=== PATIENT | male | born 1950 | race Caucasian/White ===

== ENCOUNTER 2021-11-17 00:09 | Day surgery (SDC) | payer MEDICARE, SELFPAY ==
[2021-10-29 14:18] VITALS: BMI 35.8
--- NOTE | 2021-11-17 07:46 | WPDANESEPPF ---
Anes - Initial Pre Proc Eval Procedure: Operation Date: 11/17/21 09:45 Proposed Procedures p Screening Colonoscopy - Rizwan Barnard MD Date/Time: 11/17/21 07:46 Surgeon: Rizwan Barnard MD Pre Op Diagnosis: hx of colon polyps Patient Data Age: 71 Gender: M Height: 1.75 m Weight: 110 kg Allergies Allergy/AdvReac Type Severity Reaction Status Date / Time No Known Allergies Allergy Unknown NOT AN Uncoded 11/17/21 08:30 ALLERGY Home Medications Medication Instructions Recorded Confirmed Type aspirin 81 mg tablet,delayed 81 mg PO DAILY 08/09/19 10/29/21 History release (Adult Low Dose Aspirin) cholecalciferol (vitamin D3) 125 6,000 unit PO DAILY 08/09/19 10/29/21 History mcg (5,000 unit) tablet amlodipine 10 mg tablet 10 mg PO DAILY #90 tabs 05/07/21 10/29/21 Rx atorvastatin 40 mg tablet 40 mg PO DAILY #90 tabs 05/07/21 10/29/21 Rx fenofibrate 160 mg tablet 160 mg PO DAILY #90 tabs 05/07/21 10/29/21 Rx sodium sul 1.479 gram-potas ch See Rx Instructions PO PER PKG DIR 10/22/21 10/29/21 Rx 0.188 gram-magnes sul 0.225 gram #24 tabs tablet (Sutab) Patient hx anesthesia problems: none Family hx anesthesia problems: none Results Review: All pre-operative results and documents have been reviewed as part of the pre-operative evaluation. [facility] Past Medical History Medical History (Updated 02/18/21 @ 22:06 by Anahi Dooley MD) Essential (primary) hypertension H/O colon cancer, stage III Hyperlipidemia, unspecified Obesity (BMI 30-39.9) Vitamin D deficiency Social History Social History Smoking packs per day: 1 Smoking cigarettes per day: 20.0 Years smoked: 20 Smoking pack-years: 20.00 Smoking status: Former smoker Second hand tobacco smoke exposure: No Alcohol intake: current Alcohol use details: beer 2-3/night Substance use: never Substance use type: does not use Living arrangements: with family Gender identity (if verbalized by the patient): Male Spiritual care concerns: No Anes - Eval Final PreProcedure Day of Procedure 11/17/21 07:46 Patient weight: obese Heart: regular rate and rhythm Lungs: clear to auscultation Airway: Mallampati scale class II Neurological: alert and oriented Last oral intake: >/= 8 hours ASA classification: III Emergent: no Anesthetic plan: proceed Anesthesia type and monitoring: general GIVS and standard monitoring Results Review: All pre-operative results and documents have been reviewed as part of the pre-operative evaluation. Informed Consent: The patient's anesthetic plan and its attendant risks and benefits were discussed with the patient/family/POA. Questions were solicited and answers provided to the satisfaction of the patient/family/POA.
[2021-11-17 08:31] VITALS: BP 133/82; PULSE 73; RESP 18; TEMP 36.2; O2SAT 99
[2021-11-17] MEDS: LACTATED RINGERS 1,000 ML 150 ML IV CONT (08:45)
--- NOTE | 2021-11-17 08:57 | PM.IMHP ---
H&P: HPI History of Present Illness Date/Time: 11/17/21 08:57 Chief Complaint: Neoplasia screening. Narrative: This is a 71-year-old white male patient presents for screening colonoscopy. Patient has a history of colon cancer resected 1998. He has had colon polyps noted subsequently most recently 2018. Patient reports that his current weight appetite and bowel movements are normal. He denies abdominal pain. He has had no bleeding. Family history is noncontributory. Review of Systems Review of Systems: Review of systems noncontributory. [facility] Past Medical History Medical History (Updated 02/18/21 @ 22:06 by Anahi Dooley MD) Essential (primary) hypertension H/O colon cancer, stage III Hyperlipidemia, unspecified Obesity (BMI 30-39.9) Vitamin D deficiency Social History Social History Smoking packs per day: 1 Smoking cigarettes per day: 20.0 Years smoked: 20 Smoking pack-years: 20.00 Smoking status: Former smoker Second hand tobacco smoke exposure: No Alcohol intake: current Alcohol use details: beer 2-3/night Substance use: never Substance use type: does not use Living arrangements: with family Gender identity (if verbalized by the patient): Male Spiritual care concerns: No Meds Home Medications and Allergies Home Medications Medication Instructions Recorded Confirmed Type aspirin 81 mg tablet,delayed 81 mg PO DAILY 08/09/19 10/29/21 History release (Adult Low Dose Aspirin) cholecalciferol (vitamin D3) 125 6,000 unit PO DAILY 08/09/19 10/29/21 History mcg (5,000 unit) tablet amlodipine 10 mg tablet 10 mg PO DAILY #90 tabs 05/07/21 10/29/21 Rx atorvastatin 40 mg tablet 40 mg PO DAILY #90 tabs 05/07/21 10/29/21 Rx fenofibrate 160 mg tablet 160 mg PO DAILY #90 tabs 05/07/21 10/29/21 Rx sodium sul 1.479 gram-potas ch See Rx Instructions PO PER PKG DIR 10/22/21 10/29/21 Rx 0.188 gram-magnes sul 0.225 gram #24 tabs tablet (Sutab) Allergies Allergy/AdvReac Type Severity Reaction Status Date / Time No Known Allergies Allergy Unknown NOT AN Uncoded 11/17/21 08:30 ALLERGY Vital Signs Vital Signs - 24 hr 11/17/21 08:31 Temperature 97.2 F L Pulse Rate 73 Respiratory Rate 18 Blood Pressure 133/82 Pulse Oximetry 99 Oxygen Delivery Room Air Exam Narrative: Physical exam reveals patient to be alert. Vital signs stable. HEENT exam is unremarkable. Patient is anicteric. Lungs are clear to auscultation and percussion. Heart is without murmur or extra sounds. Abdominal exam bowel sounds are present soft nontender with no organomegaly. Digital external rectal exam is normal. Assessment and Plan Assessment and plan (1) H/O colon cancer, stage III: Code(s): Z85.038 - Personal history of other malignant neoplasm of large intestine Status: Acute Assessment and Plan: Patient has a distant history of colon cancer 1999 was resected. He has had recurrent colon polyps most recently 2019. Plan is for surveillance colonoscopy now and at 3 year intervals in the future.
[2021-11-17] MEDS: SIMETHICONE ORAL SUSPENSION 20 MG/0.3 ML 30 ML BOTTLE 0.6 ML IRRIGATION (09:58)
[2021-11-17 10:17] VITALS: BP 131/70; PULSE 56; RESP 15; O2SAT 96
[2021-11-17 10:27] VITALS: BP 132/72; PULSE 72; RESP 18; O2SAT 98
[2021-11-17 10:37] VITALS: BP 129/76; PULSE 62; RESP 14; O2SAT 98
== END 2021-11-17 10:43 | disposition home or self-care (01) ==
PROVIDERS: PCP Family Medicine; Visit Provider Internal Medicine Gastroenterology
PROC: 0DJD8ZZ Inspection of Lower Intestinal Tract, Via Natural or Artificial Opening Endoscopic (ICD-10-PCS; CPT 45378; principal; 2021-11-17 09:45)
DX: Z12.11 Encounter for screening for malignant neoplasm of colon (principal); K62.1 Rectal polyp; K64.8 Other hemorrhoids; Z98.0 Intestinal bypass and anastomosis status; Z90.49 Acquired absence of other specified parts of digestive tract; Z85.038 Personal history of other malignant neoplasm of large intestine; I10 Essential (primary) hypertension; E78.5 Hyperlipidemia, unspecified; E55.9 Vitamin D deficiency, unspecified; Z79.82 Long term (current) use of aspirin; E66.9 Obesity, unspecified; Z68.35 Body mass index [BMI] 35.0-35.9, adult; Z87.891 Personal history of nicotine dependence
CPT/HCPCS: 45385; 88305; J2001; J2704; J7120

== ENCOUNTER 2024-11-26 00:14 | Day surgery (SDC) | payer MEDICARE, SELFPAY ==
[2024-11-07 14:35] VITALS: BMI 36.3
[2024-11-26 12:05] VITALS: BP 148/80; PULSE 66; RESP 18; TEMP 36.3; O2SAT 99; BMI 35.7
--- NOTE | 2024-11-26 12:13 | WPDANESEPPF ---
Anes - Initial Pre Proc Eval Procedure: Operation Date: 11/26/24 13:15 Proposed Procedures p Screening Colonoscopy - Armen Robertson MD Date/Time: 11/26/24 12:13 Surgeon: Armen Robertson MD Pre Op Diagnosis: Personal history of colon polyps, unspecified Patient Data Age: 74 Gender: M Height: 1.75 m Weight: 109.8 kg Last Vital Signs Temp 36.3 C L 11/26/24 12:05 Pulse 66 11/26/24 12:05 Resp 18 11/26/24 12:05 BP 148/80 H 11/26/24 12:05 Pulse Ox 99 11/26/24 12:05 O2 Del Method Room Air 11/26/24 12:05 Allergies Allergy/AdvReac Type Severity Reaction Status Date / Time No Known Allergies Allergy Verified 11/26/24 12:10 Home Medications ?Medication ?Instructions ?Recorded ?Confirmed ?Type aspirin 81 mg tablet,delayed 81 mg PO DAILY 08/09/19 11/26/24 History release (Adult Low Dose Aspirin) cholecalciferol (vitamin D3) 125 6,000 unit PO DAILY 08/09/19 11/26/24 History mcg (5,000 unit) tablet amlodipine 10 mg tablet 10 mg PO DAILY #90 tabs 11/11/22 11/26/24 Rx atorvastatin 40 mg tablet 40 mg PO DAILY #90 tabs 11/11/22 11/26/24 Rx fenofibrate 160 mg tablet 160 mg PO DAILY #90 tabs 11/11/22 11/26/24 Rx fiber 1 cap PO DAILY 11/07/24 11/26/24 History Patient hx anesthesia problems: none Family hx anesthesia problems: none Results Review: All pre-operative results and documents have been reviewed as part of the pre-operative evaluation. [facility] Past Medical History Medical History (Updated 02/18/21 @ 22:06 by Anahi Dooley MD) Obesity (BMI 30-39.9) Essential (primary) hypertension H/O colon cancer, stage III Hyperlipidemia, unspecified Vitamin D deficiency Social History Social History Smoking packs per day: 1 Smoking cigarettes per day: 20.0 Years smoked: 20 Smoking pack-years: 20.00 Smoking status: Former smoker Tobacco type: cigarettes Second hand tobacco smoke exposure: No Alcohol intake: current Drinks per week: 14 Alcohol use details: 2 beers/daily Substance use: never Substance use type: does not use Living arrangements: with family Gender identity (if verbalized by the patient): Male Spiritual care concerns: No Anes - Eval Final PreProcedure Day of Procedure 11/26/24 12:13 Patient weight: obese Heart: regular rate and rhythm Lungs: clear to auscultation Airway: Mallampati scale class II Neurological: alert and oriented Last oral intake: >/= 8 hours ASA classification: III Emergent: no Anesthetic plan: proceed Anesthesia type and monitoring: general GIVS and standard monitoring Results Review: All pre-operative results and documents have been reviewed as part of the pre-operative evaluation. Informed Consent: The patient's anesthetic plan and its attendant risks and benefits were discussed with the patient/family/POA. Questions were solicited and answers provided to the satisfaction of the patient/family/POA.
[2024-11-26] MEDS: LACTATED RINGERS 1,000 ML 150 ML IV CONT (12:25)
--- NOTE | 2024-11-26 13:43 | PM.IMHP ---
H&P: HPI History of Present Illness Date/Time: 11/26/24 13:43 Chief Complaint: History of colon cancer Narrative: the patient had a right hemicolectomy in 1998 for colorectal cancer. His last colonoscopy was in 2021 finding a small serrated adenoma in the rectum. He is here for surveillance colonoscopy. Review of Systems Review of Systems: All systems reviewed & are unremarkable except as noted in HPI and below [facility] Past Medical History Medical History (Updated 02/18/21 @ 22:06 by Anahi Dooley MD) Obesity (BMI 30-39.9) Essential (primary) hypertension H/O colon cancer, stage III Hyperlipidemia, unspecified Vitamin D deficiency Social History Social History Smoking packs per day: 1 Smoking cigarettes per day: 20.0 Years smoked: 20 Smoking pack-years: 20.00 Smoking status: Former smoker Tobacco type: cigarettes Second hand tobacco smoke exposure: No Alcohol intake: current Drinks per week: 14 Alcohol use details: 2 beers/daily Substance use: never Substance use type: does not use Living arrangements: with family Gender identity (if verbalized by the patient): Male Spiritual care concerns: No Meds Home Medications and Allergies Home Medications ?Medication ?Instructions ?Recorded ?Confirmed ?Type aspirin 81 mg tablet,delayed 81 mg PO DAILY 08/09/19 11/26/24 History release (Adult Low Dose Aspirin) cholecalciferol (vitamin D3) 125 6,000 unit PO DAILY 08/09/19 11/26/24 History mcg (5,000 unit) tablet amlodipine 10 mg tablet 10 mg PO DAILY #90 tabs 11/11/22 11/26/24 Rx atorvastatin 40 mg tablet 40 mg PO DAILY #90 tabs 11/11/22 11/26/24 Rx fenofibrate 160 mg tablet 160 mg PO DAILY #90 tabs 11/11/22 11/26/24 Rx fiber 1 cap PO DAILY 11/07/24 11/26/24 History Allergies Allergy/AdvReac Type Severity Reaction Status Date / Time No Known Allergies Allergy Verified 11/26/24 12:10 Vital Signs Vital Signs - 24 hr 11/26/24 12:05 Temperature 97.3 F L Pulse Rate 66 Respiratory Rate 18 Blood Pressure 148/80 H Pulse Oximetry 99 Oxygen Delivery Room Air Exam Const: General: cooperative and healthy appearing Resp: Effort & Inspection: normal respiratory effort and able to speak in complete sentences Auscultation: clear to auscultation bilaterally Cardio: Rate: regular rate Rhythm: regular rhythm GI: Inspection: normal to inspection GI Palp: No No hepatosplenomegaly present Auscultation: normal bowel sounds Rectal Exam: deferred Skin: General skin exam: normal color Psych: Appearance: grossly normal Mental Status: mental status grossly normal Assessment and Plan Assessment and plan (1) H/O colon cancer, stage III: Code(s): Z85.038 - Personal history of other malignant neoplasm of large intestine Status: Acute Assessment and Plan: The patient is deemed a good candidate for the procedure. Consent signed. Will proceed.
[2024-11-26] MEDS: SIMETHICONE ORAL SUSPENSION 20 MG/0.3 ML 30 ML BOTTLE 0.6 ML IRRIGATION (13:51)
[2024-11-26 14:11] VITALS: BP 129/80; PULSE 77; RESP 22; O2SAT 96
[2024-11-26 14:21] VITALS: BP 127/90; PULSE 84; RESP 20; O2SAT 98
[2024-11-26 14:31] VITALS: BP 135/90; PULSE 77; RESP 18; O2SAT 98
== END 2024-11-26 14:45 | disposition home or self-care (01) ==
PROVIDERS: PCP Nurse Practitioner Family; Referring Provider Internal Medicine Gastroenterology; Visit Provider Internal Medicine Gastroenterology
PROC: 0DJD8ZZ Inspection of Lower Intestinal Tract, Via Natural or Artificial Opening Endoscopic (ICD-10-PCS; CPT 45378; principal; 2024-11-26 13:15)
DX: Z08 Encounter for follow-up examination after completed treatment for malignant neoplasm (principal); Z85.038 Personal history of other malignant neoplasm of large intestine; Z98.0 Intestinal bypass and anastomosis status; Z86.0101 Personal history of adenomatous and serrated colon polyps; Z87.891 Personal history of nicotine dependence; E66.9 Obesity, unspecified; Z68.35 Body mass index [BMI] 35.0-35.9, adult
CPT/HCPCS: 45378; J2003; J2704; J7120

== ENCOUNTER 2025-04-16 02:50 | Emergency (ER) | payer MEDICARE, SELFPAY ==
--- NOTE | ~2025-04-16 | XR_ITS ---
Examination: XR chest 1V portable Clinical History: r shoulder pain, chest pain? Comparison: 04/01/2019 Technique: Portable AP Findings: Heart size normal. Right basilar atelectasis. No acute bony abnormality. IMPRESSION: 1. No significant acute cardiopulmonary findings given portable technique. Reviewed, dictated and finalized at location [facility]. [facility]
--- NOTE | 2025-04-16 02:55 | ECG_ITS ---
Test Date: 2025-04-16 03:03:37 Measurements Intervals [place] Rate: 65 P: 29 ND: 210 QRS: -34 QRSD: 104 T: 57 QT: 395 QTc: 412 Interpretive Statements SINUS RHYTHM WITH FIRST DEGREE AV BLOCK LEFT AXIS DEVIATION [QRS AXIS < -30] No previous ECG available for comparison Electronically Signed On 04-16-2025 17:54:05 [employer] MANAGER by Meli Merchant M.D.
--- NOTE | 2025-04-16 03:07 | ED.EXTPRO ---
HPI - Extremity Problem General Chief complaint: Extremity Problem,Nontraumatic Stated complaint: R SHOULDER PAIN FOR PAST HOUR Time Seen by Provider: 04/16/25 02:57 Source: patient and family Mode of arrival: ambulatory Limitations: no limitations History of Present Illness HPI Narrative: This is a 74-year-old male with history of colon cancer, hyperlipidemia, hypertension who presents the ED for possible arrhythmia and shoulder pain. Patient states for the past couple months, he has been having notifications on his monitor telling him he has been in a rhythmic a. He states that last night, he onset of right shoulder pain and dizziness and he was concerned that he may be having a heart attack prompting him to come to the ED. Denies chest pain at this time. Denies nausea vomiting. The dizziness has resolved. Related Data Home Medications ?Medication ?Instructions ?Recorded ?Confirmed ?Last Taken ?Type aspirin 81 mg tablet,delayed 81 mg PO DAILY 08/09/19 11/26/24 11/25/24 History release (Adult Low Dose Aspirin) cholecalciferol (vitamin D3) 125 6,000 unit PO DAILY 08/09/19 11/26/24 11/25/24 History mcg (5,000 unit) tablet fiber 1 cap PO DAILY 11/07/24 11/26/24 11/25/24 History Allergies Allergy/AdvReac Type Severity Reaction Status Date / Time No Known Allergies Allergy Verified 11/26/24 12:10 Review of Systems Review of Systems: Gen.: Denies fevers or chills Eyes: Denies eye pain or visual change ENT: Denies congestion Respiratory: Denies shortness of breath or cough CV: Denies chest pain or palpitations GI: Denies abdominal pain nausea, emesis or diarrhea denies burning, urgency, frequency or hematuria Musculoskeletal: Denies back pain or muscle pain Neuro: Denies numbness, tingling, weakness or focal weakness Skin: Denies rash Except as documented, all other systems reviewed and negative [facility] Past Medical History Medical History (Updated 04/16/25 @ 03:58 by Kashif Beth DO) Obesity (BMI 30-39.9) Essential (primary) hypertension H/O colon cancer, stage III Hyperlipidemia, unspecified Vitamin D deficiency Social History Social History Smoking packs per day: 1 Smoking cigarettes per day: 20.0 Years smoked: 20 Smoking pack-years: 20.00 Tobacco type: cigarettes Second hand tobacco smoke exposure: No Alcohol intake: current Drinks per week: 14 Alcohol use details: 2 beers/daily Substance use: never Substance use type: does not use Living arrangements: with family Gender identity (if verbalized by the patient): Male Spiritual care concerns: No Course Vital Signs Vital signs: Vital Signs Temperature 98 F 04/16/25 03:17 Pulse Rate 66 04/16/25 03:17 Respiratory Rate 18 04/16/25 03:17 Blood Pressure 177/84 H 04/16/25 03:17 Pulse Oximetry 98 04/16/25 03:17 Oxygen Delivery Room Air 04/16/25 03:17 Temperature 98 F 04/16/25 03:17 Pulse Rate 62 04/16/25 04:03 Respiratory Rate 13 04/16/25 04:03 Blood Pressure 141/77 H 04/16/25 04:03 Pulse Oximetry 97 04/16/25 04:03 Oxygen Delivery Room Air 04/16/25 03:17 MDM - Extremity (Nontraumatic) MDM Narrative Medical decision making narrative: 74-year-old male Presenting for shoulder pain and transient lightheadedness. On initial evaluation patient was in no acute distress afebrile, hemodynamic stable. Differentials include but are not limited to: ACS, PE, PNA, bronchitis, costochondritis, pleurisy, viral syndrome, GERD, Fracture, sprain, strain, contusion Notable exam findings: Heart and lungs clear. Shoulder nontender. Notable lab findings: CBC and CMP without significant abnormalities. Troponin within normal limits. BNP negative. Notable imaging findings: Chest x-ray showed no acute process. EKG without concerning findings. Patient's EKGs and labs are without significant high risk changes. Cardiac risk factors reviewed. Patient is felt likely low risk for ACS and reasonable for further risk stratification testing as an outpatient. Pain was not sudden or maximal in onset without tearing or ripping quality. No other signs of symptoms suggest aortic dissection. No pneumonia seen on evaluation today. Patient is felt to be a reasonable candidate for continued evaluation as an outpatient. Patient was deemed appropriate for discharge at this time. Patient was advised follow-up with their breadman in the next week for re-evaluation. Patient was agreeable to this plan. Given strict return precautions. Medical Records Attestation: I reviewed the patient's medical records. Lab Data 04/16/25 03:14 04/16/25 03:14 Labs: Lab Results 04/16/25 Range/Units 03:14 WBC 5.0 (4.5-10.0) K/mm3 RBC 4.93 (4.6-6.20) M/mm3 Hgb 14.6 (14.0-18.0) g/dL Hct 43.3 (42.0-52.0) % MCV 87.8 (80-100) fl MCH 29.6 (26-34) pg MCHC 33.7 (32-36) g/dl RDW 14.5 (11.5-14.5) % Plt Count 160 (150-375) k/mm3 MPV 10.1 (7.4-10.4) fl Immature Gran % (Auto) 0.2 (0-0.5) % Neut % (Auto) 41.6 L (45.5-73.1) % Lymph % (Auto) 45.1 H (18.3-44.2) % Cassia % (Auto) 9.7 H (2.6-8.5) % Eos % (Auto) 3.0 (0-4.4) % Baso % (Auto) 0.4 (0.2-1.2) % Lymph # (Auto) 2.27 (0.9-3.2) K/mm3 Cassia # (Auto) 0.5 (0.1-0.6) K/mm3 Eos # (Auto) 0.2 (0-0.3) K/mm3 Baso # (Auto) 0.0 (0.0-0.1) K/mm3 Abs Immat Gran (auto) 0.01 (0.00-0.031) K/mm3 Absolute Neuts (auto) 2.1 (1.3-6.7) K/mm3 Absolute Nucleated RBC 0.000 (0.0-0.012) K/mm3 Nucleated RBC % 0.0 (0.0-0.2) % Sodium 136 L (137-145) mmol/L Potassium 3.9 (3.4-5.0) mmol/L Chloride 109 H (98-107) mmol/L Carbon Dioxide 21 L (22-30) mmol/L Anion Gap 6 (4-12) mmol/L BUN 23 H (9-20) mg/dL Creatinine 1.16 (0.7-1.3) mg/dL Estim Creat Clear Calc 60 ml/min Estimated GFR > 60 (59 - ) Glucose 98 (65-110) mg/dL Calcium 8.7 (8.4-10.2) mg/dL Total Bilirubin 0.4 (0.2-1.3) mg/dL AST 27 (17-59) U/L ALT 25 (6-50) U/L Alkaline Phosphatase 48 (38-126) U/L Troponin I < 0.012 (0.000-0.034) ng/mL NT-Pro-B Natriuret Pep < 20 (19.9-100) pg/mL Total Protein 7.1 (6.3-8.2) g/dL Albumin 4.2 (3.5-5.1) g/dL Imaging Data Attestation: I personally reviewed and interpreted this imaging study as follows: My impression: Chest x-ray: Normal cardiac silhouette, no consolidations, no pleural effusions, no pulmonary vascular congestion ECG Data EKG #1: Attestation EKG: I personally reviewed and interpreted this ECG as follows: ECG completion date: 04/16/25 ECG completion time: 03:03 Interpretation: Sinus rhythm with first-degree AV block, left axis deviation, no acute ST or T-wave changes Discharge Plan Discharge Clinical Impression: Arthralgia of right shoulder region Patient Disposition: Home Condition: Stable Instructions: Antibiotic Form, Shoulder Pain (ED) Additional Instructions: Lab work and imaging showed no evidence of heart damage at this time.. Call your breadman tomorrow to schedule appointment, he may be due for a stress test. Return to the ED for new or worsening symptoms. Patient Language: Turkmen Prescriptions: No Action aspirin [Adult Low Dose Aspirin] 81 mg tablet,delayed release (DR/EC) 81 mg PO DAILY cholecalciferol (vitamin D3) 125 mcg (5,000 unit) tablet 6,000 unit PO DAILY fiber Capsule 1 cap PO DAILY fenofibrate 160 mg tablet 160 mg PO DAILY Qty: 90 3RF atorvastatin 40 mg tablet 40 mg PO DAILY Qty: 90 3RF amlodipine 10 mg tablet 10 mg PO DAILY Qty: 90 3RF Follow-up/Referrals: Haleigh,Phuong M., [facility] [employer] [Primary Care Provider, Unknown]
--- OUTSIDE RECORDS SUMMARY | 2025-04-16 03:14 | XMS_ITS | Clinical Summary ---
Author Organization [facility] Address [address] [place] [address] Phone Care Team Providers Care Guidance Adviser Name Role Phone Phuong Ricardo NP Primary Care Provider [phone] Kate Pereira MD Unavailable [phone] Rizwan Barnard MD Unavailable [phone] Allergies No known active allergies Medications aspirin 81 mg tablet 07/19/2016Aspir in, po solid 81 mg Tablet, delayed release (enteric coated)POdailyC urrent Medication 7 Active cholecalciferol (VITAMIN D-3) 5,000 unit tablet 6000 IU Active FIBER CHOICE, INULIN, ORAL Take by mouth Act dash fenofibrate (TRIGLIDE) 160 mg tablet TAKE 1 TABLET BY MOUTH EVERY DAY 100 tablet 2 5 Active amLODIPine (NORVASC) 10 mg tablet TAKE 1 TABLET BY MOUTH DAILY 100 tablet 2 5 Active atorvastatin (LIPITOR) 40 mg tablet TAKE 1 TABLET BY MOUTH DAILY 100 tablet 2 5 Active Active Problems Problem Noted Date Diagnosed Date Medicare annual wellness visit, subsequent 12/09 Assessment & Plan (07/27/2024 11:13 AM CIVIL SERVICE CLERK): A yearly Medicare Annual Wellness Visit has been performed today. Ranjan Sinha is up to date on screening tests. He is in need of None- no screening indicated at this time- these have been ordered. He is up to date on needed preventative vaccinations; He is in need of none . These have been ordered/arranged unless otherwise indicated. Cataracta 12/09/2021 Class 2 severe obesity due t o excess calories with serious comorbidity and body mass index (BMI) of 37.0 to 37.9 in adult 12/09/2021 Assessment & Plan (03/26/2025 11:18 AM CDT): Healthy, low carbohydrate lifestyle and exercise for 150min/week recommended Elevated coronary artery calcium score Assessment & Plan (09/20/2023 2:01 PM CDT): Negative stress test. Continue aspirin Pulmonary nodule 08/13/2021 Assessment & Plan (01/25/2024 11:21 AM CDT): Quit smoking 1985. (2) 4 mm nodules x 1 year ago. Will get follow up CT. Essential hypertension 06/10/2021 Assessment & Plan (03/26/2025 11:17 AM CDT): BP elevated in office, repeat improved. Reviewed pt's home BP log and they are acceptable. He does note about once every 2 weeks or so he will get an irregular notice for his HR. He experiences no symptoms. HR normal in office today. Will have pt monitor HR at home with monitor he has and decide if we want to order a MCT monitor. Symptoms to be mindful of discussed. Assessment & Plan (09/25/2024 1:51 PM CDT): Controlled with amlodipine. No changes recommended Assessment & Plan (07/27/2024 11:13 AM CIVIL SERVICE CLERK): Blood pressure is well controlled with amlodipine. No changes recommended. Updated labs ordered. Assessment & Plan (01/25/2024 11:22 AM CDT): Blood pressure is well controlled with amlodipine. No changes recommended. Assessment & Plan (09/20/2023 2:00 PM CDT): Blood pressure is well controlled with amlodipine. No changes recommended. Assessment & Plan (07/27/2023 9:51 AM CIVIL SERVICE CLERK): BP well controlled in office, continues Amlodipine 10 mg daily. Updated labs ordered. Mixed hyperlipidemia 06/10/2021 Assessment & Plan (03/26/2025 11:15 AM CDT): Pt continuing Atorvastatin and Fenofibrate. No side effects reported. Updated labs ordered. Assessment & Plan (09/25/2024 1:51 PM CDT): Lipids from July are reviewed. Continue atorvastatin and fenofibrate. Assessment & Plan (07/27/2024 11:14 AM CIVIL SERVICE CLERK): Continues Atorvastatin and Fenofibrate. Updated labs ordered. Assessment & Plan (09/20/2023 2:00 PM CDT): Lipids are satisfactory. Continue atorvastatin. Assessment & Plan (07/27/2023 9:51 AM CIVIL SERVICE CLERK): Continues Lipitor and Fenofibrate, updated lipid panel ordered. No side effects noted. History of colon cancer 07/17/2018 Cancer Staging:Pathologic stage from 03/02/1999:Stage IIIB(pT3, pN1a, cM0) - Signed by Kristian Dos Santos MD on 07/24/2018 Clinical: Unsigned History of colon cancer 07/16/2015 Resolved Problems Problem Noted Date Diagnosed Date Resolved Date Colon cancer 03/02/1999 03/26/2025 Encounters Date Type Department Care Team Description 03/27/2025 Results Follow-Up [facility] at [address] [address] Phuong Ricardo, REAL ESTATE CLOSER Hemoglobin A1c, Thyroid Function [place], Lipid panel, Additional followed-up results: 4 03/26/2025 11:30 AM CDT Lab [address] [address] Encounter for screening examination for intermediate hyperglycemia and diabetes mellitus; Essential hypertension; Mixed hyperlipidemia 03/26/2025 10:30 AM CDT Office Visit [facility] Medical [facility] at [address] [address] Phuong Ricardo, JUAN CARLOS Essential hypertension (Primary Dx); Mixed hyperlipidemia; Encounter for screening examination for intermediate hyperglycemia and diabetes mellitus; Class 2 severe obesity due to excess calories with serious comorbidity and body mass index (BMI) of 37.0 to 37.9 in adult from Last 3 Months Immunizations Immunization Administration Dates Next Due Influenza, Quad, Adjuvantate d, Intramuscular 02/20/2021 Influenza, Quadrivalent, Hig h Dose, Preservative Free, Intrr 03/10/2023,03/23/2022 Influenza, Trivalent, Adjuva nted, Intramuscular 03/29/2024 Influenza, Trivalent, High D ose, Split, Preservative Free, Intramuscular 04/05/2019,04/11/2018,05/28/2016 Influenza, Trivalent, IM (MDV) 02/11/2014 Influenza, Trivalent, Preser vative Free, Intramuscular 02/22/2020,04/02/2015 Influenza, Unspecified 02/14/2025,2023,02/16/2023,03/25,07/19/2016,07/21/2015,07/15/2014 ,07/09/2013 Moderna SARS-CoV-2 Monovalen t Vaccination (12+ YRS) 09/14/2021,07/30/2020 Pneumococcal Conjugate PCV 13 05/06/2016, 015 Pneumococcal Polysaccharide PPV23 05/28/2016 RSV Vaccine, Pref, Recombina nt, Subunit, Adjuvanted, PF, IM (Arexvy) 03/10/2023 Tdap 09/01/2015 ZOSTER LIVE 07/19/2016,07/21/2015,09/20/2012 ZOSTER Recombinant 02/02/2025, 5,07/07/2015,09/04 Zoster, unspecified 07/07/2016 Surgical History Surgery Date Site/Laterality Comments COLONOSCOPY COLON SURGERY CHOLECYSTECTOMY TUMOR REMOVAL 06/06/2002 - 06/05/2003 ABDOMINAL SURGERY 07/19/92 20 lb benign tumor removed VASECTOMY December 1972 Medical History Medical History Date Comments Colon cancer (HCC) Hyperlipidemia Hypertension Cataract October 04, 2022 (removed) Family History Medical History Relation Name Comments Cancer Maternal Grandfather Khalif Case Heart failure Maternal Grandmother Hypertension Mother Steph Sinha Stroke Mother Steph Sinha COPD Sister Karyn Smith Relation Name Status Comments Father Maternal Grandfather Khalif Case Maternal Grandmother Mother Steph Sinha Sister Karyn Smith Social History Tobacco Use Types Packs/Day Years Used Date Smoking Tobacco: Former Cigarettes 1 25 0 11/04/1972 - 1995 Passive Smoke Exposure: Past Smokeless Tobacco: Never Tobacco Cessation:Counseling Given: Not Answered Alcohol Use Standard Drinks/Week Comments Yes 2 (1 standard drink = 0.6 oz pur e alcohol) PHQ-2 Answer Date Recorded PHQ-2 Total Score (If total score is 3 or more points, staff should administer the PHQ-9) 0 03/26/2025 Sex and Gender Information Value Date Recorded Sex Assigned at Not on file Legal Sex Male 12:40 PM CIVIL SERVICE CLERK Gender Identity Male 06/03/2021 1:40 PM CIVIL SERVICE CLERK Sexual Orientation Straight 06/03/2021 1: 40 PM CIVIL SERVICE CLERK Last Filed Vital Signs Vital Sign Reading Time Taken Comments Blood Pressure 162/54 03/26/2025 10:39 AM CDT Pulse 63 03/26/2025 10:39 AM CDT Temperature 36.3 C (97.3 F) 03/26/2025 10:39 AM CDT Respiratory Rate 16 03/26/2025 10:39 AM CDT Oxygen Saturation 96% 03/26/2025 10:39 AM CDT Inhaled Oxygen Concentration - - Weight 113.9 kg (251 lb) 03/26/2025 10:39 AM CDT Height 175.3 cm (5' 9) 03/26/2025 10:39 AM CDT Body Mass Index 37.07 03/26/2025 10:39 AM CDT Plan of Treatment Health Maintenance Due Date Last Done Comments Hepatitis B Screening 11/13/1968 Covid-19 Vaccine (2024-2 6 season) 2025 10/02/2024, 03/29/2024, 03/10/2023, Additional history exists Well Visit 65+ 07/27/2025 07/27/2024, 12/04, 12/09/2021 DTaP/Tdap/Td Vaccine (2 - Td or Tdap) 08/31/2025 09/01/2015 Depression Screening 03/26/2026 03/26/2025, 07/27/2024, 01/25/2024, Additional history exists Fall Risk Assessment 03/26/2026 03/26/2025, 07/27/2024, 07/27/2023, Additional history exists Colon Cancer Screening-Colonoscopy 11/27/2027 11/26/2024, 11/17/2021, 10/25/2018 Pneumococcal vaccine 65+ Completed 016, 05/06/2016, 04/02/2015 Hepatitis C Screening Completed 04/09/2022, 022 Abdominal Aortic Aneurysm (A AA) Screen Completed 11/07/2023, 08/03/2023 Colon Cancer Screening-CT Colonography Discontinued 11/26/2024, 11/17/2021, 10/25/2018 Colon Cancer Screening-DNA Stool Discontinued 11/26/2024, 11/17/2021, 10/25/2018 Colon Cancer Screening-FIT Discontinued 11/26, 11/17/2021, 10/25/2018 Colon Cancer Screening-Sigmoidoscopy Discontinued 11/26/2024, 11/17/2021, 10/25/2018 Zoster Vaccine Completed 02/02/2025, 09/05, 07/19/2016, Additional history exists Influenza Vaccine Completed 02/14/2025, , 03/06/2024, Additional history exists Procedures Procedure Name Priority Date/Time Associated Diagnosis Comments EGFR Routine 03/26/2025 11:21 AM CDT Essential hypertension Mixed hyperlipidemia DIFFERENTIAL AUTO Routine 03/26/2025 11:21 AM CDT Essential hypertension Mixed hyperlipidemia CBC WITH AUTO DIFFERENTIAL Routine 03/26/2025 11:21 AM CDT Essential hypertension Mixed hyperlipidemia COMPREHENSIVE METABOLIC PANEL Routine 03/26/2025 11:21 AM CDT Essential hypertension Mixed hyperlipidemia LIPID PANEL Routine 03/26/2025 11:21 AM CDT Essential hypertension Mixed hyperlipidemia THYROID FUNCTION CASCADE Routine 03/26/2025 11:21 AM CDT Essential hypertension HEMOGLOBIN A1C Routine 03/26/2025 11:21 AM CDT Encounter for screening examination for intermediate hyperglycemia and diabetes mellitus HM COLONOSCOPY Routine 11/26/2024 9:49 AM CDT US ABDOMINAL AORTA Schedule Routine, Read Routine (OP Routine) 11/07/2023 8:51 AM CDT Thoracic aortic ectasia HEPATITIS C ANTIBODY Routine 04/09/2022 8:30 AM CDT from Last 3 Months or Most Recently Relevant to Health Maintenance Results * eGFR (03/26/2025 11:21 AM CDT) eGFR 73 >=60 mL/min/1. 73 m2 Comment: Interpretive Data Reference Interval Normal >/= 90 mL/min/1.73m2 Mildly decreased* 60 - 89 mL/min/1.73m2 Mildly to moderately decreased 45 - 59 mL/min/1.73m2 Moderately to severely decreased 30 - 44 mL/min/1.73m2 Severely decreased 15 - 29 mL/min/1.73m2 Kidney Failure < 15 mL/min/1.73m2 *Relative to young adult level Estimated glomerular filtration rate is determined by the 2020 CKD-EPI equation recommended by the National Kidney Foundation (A Unifying Approach to GFR Estimation: Recommendations of the NKF-ASK Task Force on Reassessing the Inclusion of Race in Diagnosing Kidney Disease, JASN 2020). The CKD-EPI equation should not be used for patients with unstable renal function and has not been validated in children and those over 70. Current interpretive data was last reviewed 2021. Blood 03/26/2025 11:2 1 AM CDT 03/26/2025 1:51 PM CDT us Phuong Ricardo NP LAB BLOOD ORDERABLES Final Resul t ZAYRA [address] [facility] Department [place] [address] * Differential, auto (03/26/2025 11:21 AM CDT) Pathologist [facility] [place] Neutrophil abs 2.79 1.50 - 6.50 K/cumm Imm gran abs 0.01 0.00 - 0.10 K/cumm [facility] Lymphocyte abs 1.76 0.80 - 3.30 K/cumm [facility] Monocyte abs 0.42 0.20 - 0.80 K/cumm [facility] Eosinophil abs 0.15 0.00 - 0.50 K/cumm [facility] Basophil abs 0.03 0.00 - 0.10 K/cumm [facility] Neutrophil pct 54.1 % [facility] Comment: Interpretive Data Percent cell count reference ranges are not reported, since discordance with absolute values may lead to misinterpretation of CBC data. Current Interpretive Data was last revised on 2017. Imm gran pct 0.2 % [facility] Comment: Interpretive Data Percent cell count reference ranges are not reported, since discordance with absolute values may lead to misinterpretation of CBC data. Current Interpretive Data was last revised on 2017. Lymphocyte pct 34.1 % [facility] Comment: Interpretive Data Percent cell count reference ranges are not reported, since discordance with absolute values may lead to misinterpretation of CBC data. Current Interpretive Data was last revised on 2017. Monocyte pct 8.1 % [facility] Comment: Interpretive Data Percent cell count reference ranges are not reported, since discordance with absolute values may lead to misinterpretation of CBC data. Current Interpretive Data was last revised on 2017. Eosinophil pct 2.9 % [facility] Comment: Interpretive Data Percent cell count reference ranges are not reported, since discordance with absolute values may lead to misinterpretation of CBC data. Current Interpretive Data was last revised on 2017. Basophil pct 0.6 % [facility] Comment: Interpretive Data Percent cell count reference ranges are not reported, since discordance with absolute values may lead to misinterpretation of CBC data. Current Interpretive Data was last revised on 2017. Blood 03/26/2025 11:2 1 AM CDT 03/26/2025 1:51 PM CDT Phuong Ricardo REAL ESTATE CLOSER LAB BLOOD ORDERABLES Final Resul t Performing Organization Address City/State/[facility] Co de Phone Number ZAYRA [address] [place] [address] * Thyroid Function [place] (03/26/2025 11:21 AM CDT) Pathologist [facility] TSH 1.57 0.30 - 4.20 mcIUnit/mL Blood 03/26/2025 11:2 1 AM CDT 03/26/2025 1:51 PM CDT us Phuong Ricardo REAL ESTATE CLOSER LAB BLOOD ORDERABLES Final Resul t Performing Organization Address [facility] de Phone Number [id number] [address] * CBC with auto differential (03/26/2025 11:21 AM CDT) Pathologist [facility] WBC 5.16 3.80 - 9.90 K/cumm Hgb 15.0 13.0 - 17.5 g/dL [facility] Hct 45.5 38.9 - 50.3 % [facility] Plt 162 150 - 400 K/cumm [facility] MPV 10.9 9.1 - 12.3 fL [facility] RBC 5.07 4.30 - 5.80 M/cumm [facility] MCV 89.7 81.3 - 96.4 fL [facility] MCH 29.6 27.1 - 33.3 pg [facility] MCHC 33.0 32.3 - 35.7 g/dL [facility] RDW CV 14.5 11.1 - 14.9 % [facility] RDW SD 47.2 35.7 - 48.1 fL [facility] NRBC abs 0.00 0.00 - 0.01 K/cumm [facility] Blood 03/26/2025 11:2 1 AM CDT 03/26/2025 1:51 PM CDT us Phuong Ricardo [employer] ESTATE CLOSER LAB BLOOD ORDERABLES Final Resul t Performing Organization Address City/[facility] Co de Phone Number ZAYRA [address] [employer] [address] [place] [address] * Hemoglobin A1c (03/26/2025 11:21 AM CDT) Hgb A1C 5.6 4.0 - 5.6 % Estimated Average Glucose 114 mg/dL [facility] MCKINNEY Comment: The ADA recommends reporting an estimated Average Glucose (eAG) with all Hemoglobin A1c results using the equation derived from a study of 507 normal and diabetic adults. Minority populations were underrepresented and children were not included. (Diabetes Care 31:7719-0632, 2008). The eAG is not equivalent to a fasting glucose. Blood 03/26/2025 11:2 1 AM CDT 03/26/2025 1:51 PM CDT Phuong Ricardo NP LAB BLOOD ORDERABLES Final Resul t [facility] [address] [facility] Department [place] [address] * (ABNORMAL) Lipid panel (03/26/2025 11:21 AM CDT) Cholesterol 181 30 - 199 mg/dL Comment: Interpretive Data Ages < or = 19 years Acceptable: <170 mg/dL Borderline high: 170-199 mg/dL High: >or= 200 mg/dL Ages > or = 20 years Desirable: <200 mg/dL Borderline high: 200-239 mg/dL High: >or= 240 mg/dL Literature References: 1. Expert Panel on Integrated Guidelines for Cardiovascular Health and Risk Reduction in Children and Adolescents. Pediatrics 2011;128:S213 2. NCEP Expert Panel. Circulation 2004;110:227 Current Interpretive Data was last revised on 2018. Triglycerides 301(H) <=149 mg/dL [facility] MCKINNEY Comment: Interpretive Data Ages < or = 9 years Acceptable: <75 mg/dL Borderline high: 75-99 mg/dL High: >or= 100 mg/dL Ages 10 to 20 years Acceptable: <90 mg/dL Borderline high: 90-129 mg/dL High: >or= 130 mg/dL Ages > or = 20 years Desirable: <150 mg/dL Borderline high: 150-199 mg/dL High: 200-499 mg/dL Very high: >or= 499 mg/dL Literature References: 1. Expert Panel on Integrated Guidelines for Cardiovascular Health and Risk Reduction in Children and Adolescents. Pediatrics 2011;128:S213 2. NCEP Expert Panel. Circulation 2004;110:227 Current Interpretive Data was last revised on 2018. HDL 55 >=40 mg/dL ZAYRA Comment: Interpretive Data Ages < or = 19 years Acceptable: >45 mg/dL Borderline low: 40-45 mg/dL Low: <40 mg/dL Ages > or = 20 years Desirable: >or= 60 mg/dL Low: <40 mg/dL Literature References: 1. Expert Panel on Integrated Guidelines for Cardiovascular Health and Risk Reduction in Children and Adolescents. Pediatrics 2011;128:S213 2. NCEP Expert Panel. Circulation 2004;110:227 Current Interpretive Data was last revised on 2018. LDL, calculated 78 <=129 mg/dL [facility]RA Comment: Interpretive Data Ages < or = 19 years Acceptable: <110 mg/dL Borderline high: 110-129 mg/dL High: >or= 130 mg/dL Ages > or = 20 years Optimal: <100 mg/dL Near optimal: 100-129 mg/dL Borderline high: 130-159 mg/dL High: >160 mg/dL Calculated using the Lloyd LDL-C estimating equation. This equation was implemented on 2024. Prior to this date LDL-C was estimated using the Friedewald equation. Literature References: 1. Expert Panel on Integrated Guidelines for Cardiovascular Health and Risk Reduction in Children and Adolescents. Pediatrics 2011;128:S213 2. NCEP Expert Panel. Circulation 2004;110:227 3. Lloyd Mckee al. ROSIE Cardiol. 2020 October 04;5(5):540-548. doi: 10.1001/jamacardio.2020.0013 Current Interpretive Data was last revised on 2024. Non-HDL Cholesterol 126 mg/dL [facility] Comment: Interpretive Data Ages < or = 19 years Acceptable: <120 mg/dL Borderline high: 120-144 mg/dL High: >145 mg/dL Ages > or = 20 years When triglycerides are >200 mg/dL, Non-HDL cholesterol is a secondary target of therapy with treatment goals that are 30 mg/dL greater than the LDL cholesterol target. Literature References: 1. Expert Panel on Integrated Guidelines for Cardiovascular Health and Risk Reduction in Children and Adolescents. Pediatrics 2011;128:S213 2. NCEP Expert Panel. Circulation 2004;110:227 Current Interpretive Data was last revised on 2018. Chol/HDL ratio 3 [facility] Blood 03/26/2025 11:2 1 AM CDT 03/26/2025 1:51 PM CDT Phuong Ricardo REAL ESTATE CLOSER LAB BLOOD ORDERABLES Final Resul t [facility] [address] [facility] Department [place] [address] * Comprehensive metabolic panel (03/26/2025 11:21 AM CDT) Sodium 139 135 - 145 mmol/L Potassium, pl 4.3 3.3 - 4.9 mmol/L [facility] Comment:Hemolyzed; Potassium value may be falsely elevated by as much as 1.0 mmol/L. Suggest redraw and reanalysis. Chloride 106 97 - 110 mmol/L [facility] CO2 25 22 - 32 mmol/L [facility] Anion gap 8 2 - 15 mmol/L [facility] BUN 18 6 - 25 mg/dL [facility] Creatinine 1.06 0.80 - 1.30 mg/dL [facility] Glucose 102 70 - 199 mg/dL [facility] Comment: Interpretive Data Fasting glucose >/= 126 mg/dl is diagnostic for diabetes. Fasting is defined as no caloric intake for at least 8 hours. Fasting glucose between 100 mg/dl to 125 mg/dl is diagnostic of prediabetes. In a patient with classic symptoms of hyperglycemia or hyperglycemic crisis, a random glucose >/= 200 mg/dl is diagnostic for diabetes. In the absence of unequivocal hyperglycemia, results should be confirmed by repeat testing. The classification and Diagnosis of Diabetes Diabetes Care 2021; 46: S19-S40. Current interpretive data was last revised 2022. Calcium 10.1 8.5 - 10.3 mg/dL [facility] Bilirubin, total 0.4 0.1 - 1.2 mg/dL [facility] Protein, pl 6.9 6.5 - 8.5 g/dL [facility] Albumin 4.4 3.5 - 5.0 g/dL [facility] Alk phos 45 40 - 130 Units/L [facility] ALT 23 7 - 55 Units/L [facility] AST 32 10 - 50 Units/L [facility] Comment:Hemolyzed; result ma y be falsely elevated Blood 03/26/2025 11:2 1 AM CDT 03/26/2025 1:51 PM CDT Phuong Ricardo REAL ESTATE CLOSER LAB BLOOD ORDERABLES Final Resul t [facility] [address] [facility] Department [place] [address] * COLONOSCOPY (11/26/2024 9:49 AM CDT) Historical Provider HEALTH MAINTENANCE Final Result * US Abdominal Aorta (11/07/2023 8:51 AM CDT) Anatomical Region Laterality Modality Abdomen N/A Ultrasound 11/07/2023 9:02 AM CDT Narrative 11/07/2023 9:05 AM CDT EXAM DESCRIPTION: US ABDOMINAL AORTA REASON FOR STUDY: 3 month follow up TECHNIQUE: Grayscale images acquired of the aorta and stored on PACS. Selected color Doppler and spectral images recorded. COMPARISON: 08/03/2023 FINDINGS: AORTIC CALIBER MAXIMAL PROXIMAL: The proximal aorta is partially obscured on this examination. Measurements are 2.7 x 2.5 cm, previously 2.8 x 2.6 cm. MID: 2.2 x 2.2 cm. DISTAL: 1.8 x 1.8 cm. ILIAC DIAMETER RIGHT: 1.2 x 1.3 cm. LEFT: 1.3 cm. OTHER: No other significant finding. IMPRESSION: Abdominal aorta within normal limits in caliber. The proximal abdominal aorta is suboptimally visualized on this examination. REFERENCE: Please see below follow up recommendations for abdominal aortic aneurysm surveillance per Society for Vascular Surgery Guidelines: < 2.5 cm No follow up or future screenings necessary 2.52.9 cm Recommended ultrasound follow up every 10 years 3.0-3.9 cm Recommended ultrasound follow up every 3 years 4.0-4.9 cm Recommended ultrasound follow up every 12 months, vascular surgery consult 5.0-5.4 cm Recommended ultrasound follow up every 6 months, vascular surgery consult >= 5.5 cm Referral to vascular surgeon Based upon Society for Vascular Surgery Guidelines: J Vasc Surgery 2008 50: s2s49; updated Jun 2017 J Vasc Surgery 67:277 THIS IS AN ELECTRONICALLY VERIFIED FINAL REPORT 11/07/2023 9:05 AM - Electronically signed by Lyubov Oakes M.D. TW: [email or web address] Report ID: [id number] Reading Location: [id number] Procedure Note Lyubov Oakes MD - 11/07/2023 EXAM DESCRIPTION: US ABDOMINAL AORTA REASON FOR STUDY: 3 month follow up TECHNIQUE: Grayscale images acquired of the aorta and stored on PACS.Selected color Doppler and spectral images recorded. COMPARISON: 08/03/2023 FINDINGS: AORTIC CALIBER MAXIMAL PROXIMAL: The proximal aorta is partially obscured on this examination. Measurements are 2.7 x 2.5 cm, previously 2.8 x 2.6 cm. MID: 2.2 x 2.2 cm. DISTAL: 1.8 x 1.8 cm. ILIAC DIAMETER RIGHT: 1.2 x 1.3 cm. LEFT: 1.3 cm. OTHER: No other significant finding. IMPRESSION: Abdominal aorta within normal limits in caliber. Theproximal abdominal aorta is suboptimally visualized on this examination. REFERENCE: Please see below follow up recommendations for abdominal aortic aneurysm surveillance per Society for Vascular Surgery Guidelines: < 2.5 cm No follow up or future screenings necessary 2.52.9 cm Recommended ultrasound follow up every 10 years 3.0-3.9 cm Recommended ultrasound follow up every 3 years 4.0-4.9 cm Recommended ultrasound follow up every 12 months, vascularsurgery consult 5.0-5.4 cm Recommended ultrasound follow up every 6 months, vascularsurgery consult >= 5.5 cm Referral to vascular surgeon Based upon Society for Vascular Surgery Guidelines: J Vasc Surgery 50: s2s49; updated Jun 2017 J Vasc Surgery 67:277 THIS IS AN ELECTRONICALLY VERIFIED FINAL REPORT 11/07/2023 9:05 AM - Electronically signed by Lyubov Oakes M.D. TW: TW Report ID: [id number] Reading Location: [place] [address] us Phuong Ricardo [employer] IMG US PROCEDURES Final Result * Hepatitis C antibody (04/09/2022 8:30 AM CDT) Hep C Ab NON-REACTI VE NON-REACT DASH [facility] SIGNAL TO CUT-OFF 0.01 <1.00 [facility] Comment: HCV antibody was non-reactive. There is no laboratory evidence of HCV infection. In most cases, no further action is required. However, if recent HCV exposure is suspected, a test for HCV RNA (test code 17020) is suggested. For additional information please refer to http://education.ClearMyMail/faq/GID46k6 (This link is being provided for informational/ educational purposes only.) 04/09/2022 8:30 AM CDT 04/09/2022 8:32 AM CDT Hayes Guzmán MD LAB MICROBIOLOGY - GENERAL OR DERABLES Final Result [facility] [address] [place] [address] from Last 3 Months or Most Recently Relevant to [place] [address] [facility] MDCR HMO REF [address] MEDICARE ADVANTAGE U[employer] MEDICARE ADVANTAGE Care Teams Guidance Adviser Relationship Specialty Start Date End Date Phuong Ricardo NP [address] [place] [address] PCP - General Family Medicine 07/27/23 Kate Pereira MD [address] [place] [address] [address] [place] [address] Consulting Physician Cardiology 07/27/23 Rizwan Barnard MD [address] [facility] [address] [place] [address] Referring Physician Gastroenterology 07/27/23
--- OUTSIDE RECORDS SUMMARY | 2025-04-16 03:14 | XMS_ITS | Encounter Summary ---
Author Organization [facility] Healthcare Address [address] [place] [address] Care Team Providers Care Emergency Medicine Name Role Phone Phuong Ricardo NP Primary Care Provider [phone] Kate Pereira MD Unavailable [phone] Rizwan Barnard MD Unavailable [phone] Encounter Details Date Type Department Care Team (Late st Contact Info) Description 03/27/2025 Results Follow-Up [facility] Medical [facility] Primary Care at [address] [address] Phuong Ricardo NP [address] [place] [address] [address] [place] [address] Hemoglobin A1c, Thyroid Function [place], Lipid panel, Additional followed-up results: 4 Social History Tobacco Use Types Packs/Day Years Used Date Smoking Tobacco: Former Cigarettes 1 25 0 11/04/1972 - 1995 Passive Smoke Exposure: Past Smokeless Tobacco: Never Alcohol Use Standard Drinks/Week Comments Yes 2 (1 standard drink = 0.6 oz pur e alcohol) PHQ-2 Answer Date Recorded PHQ-2 Total Score (If total score is 3 or more points, staff should administer the PHQ-9) 0 03/26/2025 Sex and Gender Information Value Date Recorded Sex Assigned at Not on file Legal Sex Male 12:40 PM [employer] Gender Identity Male 06/03/2021 1:40 PM [employer] Sexual Orientation Straight 06/03/2021 1: 40 PM [employer] documented as of this encounter Plan of Treatment Not on file documented as of this encounter Visit Diagnoses Not on filedocumented in this encounter Care Teams Emergency Medicine Relationship Specialty Start Date End Date Phuong Ricardo NP [address] [facility] [address] [place] [address] PCP - General Family Medicine 07/27/23 Kate Pereira MD [address] [place] [address] [address] [place] [address] Consulting Physician Cardiology 07/27/23 Rizwan Barnard MD [address] [facility] [address] [place] [address] Referring Physician Gastroenterology 07/27/23 documented as of this encounter
[2025-04-16 03:17] VITALS: BP 177/84; PULSE 66; RESP 18; TEMP 36.6; O2SAT 98
[2025-04-16 03:20] LABS: Hematocrit 43.3 % (42.0-52.0); Hemoglobin 14.6 g/dL (14.0-18.0); Immature Granulocyte Percent A 0.2 % (0-0.5); Lymphocytes Absolute Auto 2.27 K/mm3 (0.9-3.2); Mean Corpuscular HGB Conc 33.7 g/dl (32-36); Mean Corpuscular Hemoglobin 29.6 pg (26-34); Mean Corpuscular Volume 87.8 fl (80-100); Nucleated Red Blood Cells Absolute Auto 0.000 K/mm3 (0.0-0.012); Nucleated Red Blood Cells Perc 0.0 % (0.0-0.2); Platelet Count Result 160 k/mm3 (150-375); Red Blood Count 4.93 M/mm3 (4.6-6.20); White Blood Count 5.0 K/mm3 (4.5-10.0)
[2025-04-16 03:35] LABS: Alanine Aminotransferase 25 U/L (6-50); Albumin Level 4.2 g/dL (3.5-5.1); Alkaline Phosphatase 48 U/L (38-126); Anion Gap 6 mmol/L (4-12); Aspartate Amino Transferase 27 U/L (17-59); Bilirubin,Total 0.4 mg/dL (0.2-1.3); Blood Urea Nitrogen 23 mg/dL (9-20); Calcium 8.7 mg/dL (8.4-10.2); Carbon Dioxide 21 mmol/L (22-30); Chloride 109 mmol/L (98-107); Estimated CRCL calculation 60 ml/min; Estimated Glomerular Filt Rate > 60; Glucose 98 mg/dL (65-110); Potassium 3.9 mmol/L (3.4-5.0); Sodium 136 mmol/L (137-145); Total Protein 7.1 g/dL (6.3-8.2)
[2025-04-16 03:45] LABS: NT Pro B Type Natriuretic Pept < 20 pg/mL (19.9-100); Troponin I < 0.012 ng/mL (0.000-0.034)
[2025-04-16 04:03] VITALS: BP 141/77; PULSE 62; RESP 13; O2SAT 97
== END 2025-04-16 04:04 | disposition home or self-care (01) ==
PROVIDERS: Emergency Provider Student in an Organized Health Care Education/Training Program; PCP Nurse Practitioner Family
DX: M25.511 Pain in right shoulder (principal); I10 Essential (primary) hypertension; E78.5 Hyperlipidemia, unspecified; E55.9 Vitamin D deficiency, unspecified; F17.210 Nicotine dependence, cigarettes, uncomplicated; Z85.038 Personal history of other malignant neoplasm of large intestine; Z79.82 Long term (current) use of aspirin; Z79.899 Other long term (current) drug therapy; I44.0 Atrioventricular block, first degree
CPT/HCPCS: 36415; 71045; 80053; 83880; 84484; 85025; 93005; 99284